=== PATIENT | female | born 1980 | race Caucasian/White ===

== ENCOUNTER 2017-11-29 21:21 | Inpatient (IN) | payer OTHER ==
[~2017-11-29] VITALS: Ht 166.4 cm; Wt 63.5 kg
[2017-11-30] MEDS ORDERED: ceFAZolin(*) 2GM/D5W 50ML 50 ML IVPB PRN (19:38)
[2017-11-30] MEDS ORDERED: OXYTOCIN 30 UNIT/D5LR 500 ML 500 ML IV PRN ×2 (19:38→21:22)
[2017-11-30] MEDS ORDERED: FAMOTIDINE(*) 20MG/50ML PREMIX 50 ML IVPB PRN (19:38)
[2017-11-30] MEDS ORDERED: MISOPROSTOL 25 MCG CAP PV PRN (19:40)
[2017-11-30] MEDS ORDERED: TERBUTALINE SULF 1 MG/ML VIAL SUBQ PRN (19:40)
[2017-11-30] MEDS ORDERED: METOCLOPRAMIDE 10 MG/2 ML SDV IVP PRN (19:40)
[2017-11-30] MEDS ORDERED: ONDANSETRON 4 MG/2 ML VIAL IVP PRN (19:40)
[2017-11-30] MEDS ORDERED: ACETAMINOPHEN 500 MG TAB PO PRN (19:40)
[2017-11-30] MEDS ORDERED: cefOXitin/DEX(*) 2GM/50ML PREM 50 ML IVPB PRN (19:40)
[2017-11-30] MEDS ORDERED: DINOPROSTONE 10 MG INSERT PV ONE (19:40)
[2017-11-30] MEDS ORDERED: LIDOCAINE/SOD BICARB 8.4% SYR SC PRN ×2 (19:40)
[2017-11-30] MEDS ORDERED: fentaNYL CITR 100 MCG/2 ML AMP IVP PRN ×2 (19:40)
[2017-11-30] MEDS ORDERED: DLR(*) 1000 ML BAG 1,000 ML IV PRN (19:40)
[2017-11-30] MEDS ORDERED: LIDOCAINE 1% LOCAL 300 MG/30ML INJ PRN (19:40)
[2017-11-30] MEDS ORDERED: ZOLPIDEM TARTRATE 5 MG TAB PO PRN (19:40)
[2017-11-30 20:10] VITALS: BP 123/72; Ht 166.4 cm; Wt 63.5 kg
[2017-11-30 20:30] LABS: PLATELET COUNT, AUTOMATED 221 K/uL (150-450)
[2017-11-30] MEDS ORDERED: PREN-127 PO (21:16)
--- NOTE | 2017-11-30 21:49 | History & Physical ---
History of Present Illness Age of Patient: 37 : 1 Para or TPAL: 0 EDC per LMP: Dec 06, 2017 Estimated Gestational Age: 39 Chief Complaint IUGR History of Present Illness Presents at 39 weeks for IOL for asymmetric IUGR. Overall growth has been around 15%ile while AC <5%. Good fluid, dopplers and interval growth. Recommending delivery at 39 weeks due to IUGR. otherwise complicated by AMA. Past Medical, Surgical, Family and Obstetric Histories reviewed. Please see ACOG chart. Med Rec Home Meds Reported Medications Vits W-Ca,Fe,Fa(<1MG) ( VITAMINS) 1 Each Tablet, 1 EACH PO DAILY, TAB 11/30/17 Review of Systems All Systems Reviewed/Normal: Yes, Except as Noted Other All other systems reported Negative. Exam General Exam Vital Signs Vital Signs Date Time Temp Pulse Resp B/P (MAP) Pulse Ox O2 Delivery O2 Flow Rate FiO2 11/30/17 20:10 99.3 73 18 123/72 (89) 97 Room Air General Apperance: Alert/Awake/No Acute Distress Neuro: No Gross deficits Cardiovascular: Regular Rate and Rhythm Respiratory: No Respiratory Distress Abdomen: Soft, Non-Tender, Non-Distended, Gravid - Non-Tender Psychological: Alert & Oriented X3, Appropriate Mood & Affect Cervical Dialation: 3 Cervical Effacement (%): 50 Cervical Consistency: Moderate Station: -2 Presentation: Vertex (confirmed by u/s at bedside) Uterine Contractions(Q min): 3 Uterine Contraction Strength: Moderate Fetus Heart Tone Variabilty: Moderate FHT Accelerations: 15X15 FHT Category: I Medical Decision Making Data Points Result Diagram: 11/30/172011 VTE Prophylasis: Adult Deep Vein Thrombosis/Pulmonary: No Pharmacological Contraindicati: Pt at Low Risk for VTE Mechanical Contraindications: Pt at Low Risk for VTE 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 Recommending re- check cervix tonight and if no active progress with augment with pitocin through the night. AISHWARYA SIMON MD Nov 30, 2017 21:49
[2017-12-01] MEDS: LR(*) 1000 ML BAG 1,000 ML IV PRN ×2 (02:11→14:23)
--- NOTE | 2017-12-01 08:39 | Labor Progress Note ---
Labor Subjective Progress Notes Subjective No having much pain with contractions. No bleeding or spotting. Good movement. Feeling Movement?: Yes Vaginal Discharge/Fluid: No Bloody Show, No Clear Fluid, No Bloody Fluid, No Green Tinged Fluid, No Dark Green Fluid, No Mucous, No Small Amount, No Moderate Amount, No Large Amount, No Other Labor Pain: Mild Neurological: No Headache, No Other Eyes: No Visual Disturbances Labor Objective Vital Signs Vital Signs Date Time Temp Pulse Resp B/P (MAP) Pulse Ox O2 Delivery O2 Flow Rate FiO2 11/30/17 20:10 99.3 73 18 123/72 (89) 97 Room Air Vaginal Discharge/Fluid?: Clear Fluid (with amniotomy) Cervical Dialation: 3 Cervical Effacement (%): 50 Cervical Consistency: Moderate Cervical Position: Mid Station: -1 Presentation: Vertex Fetus Estimated Weight(grams): 2600 Heart Tones: 135 Heart Tone Variabilty: Moderate FHT Accelerations: 15X15 FHT Decelerations: None FHT Category: I Other Result Diagram: 11/30/172011 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 S/P amniotomy with clear amniotic fluid. Continue to get adequate labor pattern with oxytocin. RACHEL BAXTER DO Dec 01, 2017 08:39
[2017-12-01] MEDS ORDERED: BUPIVACAINE 0.25% MPF INJ EPI PRN (12:55)
[2017-12-01] MEDS ORDERED: fentaNYL CITR 100 MCG/2 ML AMP IT PRN (12:55)
[2017-12-01] MEDS ORDERED: LIDO/EPI 2% MPF 1:200,000 20ML EPI PRN (12:55)
[2017-12-01] MEDS ORDERED: ePHEDrine 25 MG/5 ML DISP.SYR IVP PRN (12:55)
[2017-12-01] MEDS ORDERED: FENTANYL/ROPIVACAINE 100 ML BAG EPI PRN (12:55)
[2017-12-01] MEDS ORDERED: BUPIVACAINE 0.5% INJ 30ML VIAL EPI PRN (12:55)
[2017-12-01] MEDS ORDERED: LIDOCAINE/PF 2% 200MG/10ML AMP 200 MG/10 ML AMPUL EPI PRN (12:55)
[2017-12-01] MEDS ORDERED: EPIDURAL KEYS XX PRN (12:55)
--- NOTE | 2017-12-01 16:15 | Anesthesia OB Pre-Anes Eval ---
History of Present Illness Anesthesia Start Date: Dec 01, 2017 Anesthesia Start Time: 15:44 OB Anesthesia Diagnosis: induction - medical EDC: Dec 06, 2017 : 1 Para: 0 Vital Signs: Vital Signs 11/30/17 20:10 Temp 99.3 Pulse 73 Resp 18 B/P (MAP) 123/72 (89) Pulse Ox 97 O2 Delivery Room Air Pain Ratin Result Diagram: 11/30/172011 Height (Inches): 65.50 Weight (Pounds): 140 BMI Calculated: 22.94 Past Medical History Medical History: no pertinent history Surgical History: no surgical history Hx Anesthesia Reactions: No Hx Family Anesthesia Reaction: No Current Medications: pitocin Home Meds Reported Medications Vits W-Ca,Fe,Fa(<1MG) ( VITAMINS) 1 Each Tablet, 1 EACH PO DAILY, TAB 11/30/17 Allergies: Coded Allergies: No Known Drug Allergies (Unverified , 12/01/17) Anesthesia OB ROS Neurological: No migraines/headaches, No seizures, No neuropathy, No other ENT: Denies Tooth caps, Denies Loose teeth, Denies Chipped teeth, Denies Dentures, Denies Bridges, Denies Retainers, Denies Veneers, Denies Implants, Denies Tongue ring, Denies Other Pulmonary: No asthma, No smoker (pks/day/yrs), No other Airway Class: ll Cardiovascular ROS: No edema, No arrhythmia, No other GI ROS: clear liquids, ice chips Last Solids Date: Nov 30, 2017 Last Solids Time: 18:30 ROS: No Herpes, No STD(s), No Liver Disease, No Renal Disease, No Other Endocrine ROS: No diabetes, No gestational diabetes, No thyroid disorder, No other Musculoskeletal ROS: No low back pain, No low back injury, No scoliosis, No other ASA Classification: 2 Assessment and Plan Anesthesia Plan: TEN JEWELL CRNA Dec 01, 2017 16:15
--- NOTE | 2017-12-01 16:17 | Procedure Note ---
Anesthetic Placement Note Anesthesia Plan: CSE Permit for Anesthesia Signed: Yes Anesthesia Technique: Patient Sitting Anesthesia Prep: Chlorhexidine Interspace: L 3-4 Local Anesthetic: 1% Lidocaine Amount Local - cc's: 3 Anesthesia Needle: 17g Touhy/Schliff Anesthesia Attempts: 1 Loss of Resistance: Normal Saline Depth of MASSIMO (cm): 4 Epidural Needle Placement: No CSF, No Blood, No Parasthesia Intrathecal Needle: 27 Gauge Pencan Cerebral Spinal Fluid: Yes, Clear Catheter Insertion (cm): 9 Catheter Type: Singh - Spring Wound Epidural Dressing: Tegaderm, Tape Anesthesia Tray: Lot Number ([id number]), Expiration Date (06/29), Reference Number ([id number]) Anesthesia Medications: Intrathecal Dose: mcg Fentanyl (10), mg Marcaine MPF (2.5), Time (1553) Epidural Test Dose: 1.5 Lido/Epi (1:200,000), Dose - mL (3), Time (1556), Negative Epidural Infusion: 0.2% Ropivicaine, With Fentanyl 2mcg/ml, Start Time: (1606) Epidural Pump Setting: Bolus Dose - mL (6), Lockout - Minutes (20), Maintenance Rate - mL/hr (6), Maximum per Hour - mL (24) Complications: None TEN JOSHI CRNA Dec 01, 2017 16:17
--- NOTE | 2017-12-01 18:25 | Labor Progress Note ---
Labor Subjective Progress Notes Subjective Feeling comfortable s/p epidural. Denies any pain. Starting to feel pressure. Feeling Movement?: Yes Vaginal Discharge/Fluid: Clear Fluid Labor Pain: Mild Neurological: No Headache, No Other Eyes: No Visual Disturbances Labor Objective Vital Signs Vital Signs Date Time Temp Pulse Resp B/P (MAP) Pulse Ox O2 Delivery O2 Flow Rate FiO2 11/30/17 20:10 99.3 73 18 123/72 (89) 97 Room Air Cervical Dialation: 9 Cervical Effacement (%): 100 Cervical Consistency: Soft Cervical Position: Anterior Station: -1 Presentation: Vertex Uterine Contractions(Q min): 2 Fetus Heart Tones: 135 Heart Tone Variabilty: Moderate FHT Accelerations: 15X15 FHT Decelerations: Early FHT Category: I Other Result Diagram: 11/30/172011 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 Will continue oxytocin infusion. Expect once complete. RACHEL BAXTER DO Dec 01, 2017 18:25
[2017-12-01] MEDS ORDERED: ACETAMINOPHEN 325 MG TAB PO PRN (20:35)
[2017-12-01] MEDS ORDERED: APAP/HYDROCODONE 325/5 TAB PO PRN (20:35)
[2017-12-01] MEDS ORDERED: MAGNESIUM HYDROXIDE* 30ML UDCP PO PRN (20:35)
[2017-12-01] MEDS ORDERED: GLYCERIN/WITCH HAZEL LEAF 1 PK TP PRN (20:35)
[2017-12-01] MEDS ORDERED: LANOLIN OINT 7 GM TUBE TP PRN (20:35)
[2017-12-01] MEDS ORDERED: HYDROCORTISONE 2.5% CR 30GM TB PR PRN (20:35)
[2017-12-01] MEDS ORDERED: BENZOCAINE 20% 60 ML BTL TP PRN (20:35)
--- NOTE | 2017-12-01 20:35 | OB Delivery Note ---
Delivery Note Vaginal Delivery Type: Spont. 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
[2017-12-01 21:00] VITALS: BP 111/57
[2017-12-01 22:00] VITALS: BP 104/56
--- NOTE | 2017-12-01 22:30 | DELIVERY NOTE ---
DELIVERY DATE: December 01, 2017 SURGEON: Chano Pineda DO ANESTHESIA: Epidural. PREOPERATIVE DIAGNOSES 1. A 37-year-old 1, para zero, at 39-2/7 weeks' gestation. 2. growth restriction. 3. Advanced maternal age. POSTOPERATIVE DIAGNOSES 1. A 37-year-old 1, para zero, at 39-2/7 weeks' gestation. 2. growth restriction. 3. Advanced maternal age. 4. Delivered. PROCEDURE Spontaneous vaginal delivery with repair of second-degree midline laceration and bilateral labial lacerations. FINDINGS Live-born female at 1950 on December 01, 2016, with Apgars of 9 and 9, weighing 2582 g or 5 pounds 11 ounces, three-vessel cord, intact placenta over a second-degree midline laceration and bilateral labial lacerations. ESTIMATED BLOOD LOSS 500 mL PATHOLOGY None. COMPLICATIONS None known. CONDITION Stable times two. Mother and infant to remain in LDRP. COUNTS Correct times two for all needles, laps, sponges, and instruments. LABOR SUMMARY The patient is a 37-year-old 1, para zero, at 39-2/7 weeks' gestation, who presented to Labor and Delivery for induction of labor secondary to growth restriction. She was 3 cm on initial exam and started on oxytocin. With oxytocin running, the patient made minimal cervical change. She then underwent artificial rupture of amniotic membranes with clear amniotic fluid and continued on oxytocin. The patient made slow, but spontaneous change with category 1 strip throughout her pattern. The patient was eventually noted to be complete, noting increased pressure, and had the desire to push. She was noted to be complete, complete, and +2 station. After coaching by the labor staff, the patient was prepped and started pushing. The patient pushed for approximately one hour when the delivery was called and assembled. DELIVERY SUMMARY The patient was placed in the dorsal lithotomy position, prepped and draped in the usual sterile manner. Upon maternal pushing, the head delivered in a controlled manner, followed by the anterior shoulder with gentle downward motion and the posterior shoulder with gentle upward motion. The remainder of the 's body delivered spontaneously. Mouth and nose were bulb suctioned. The cord was clamped times two and cut by the infant's father after approximately two and a half minutes after delivery. The infant was then placed right on the maternal chest where she continued to have vigorous cleaning and drying. Cord blood gas was obtained. The placenta delivered spontaneously with gentle cord traction. Oxytocin was infused to help with uterine tone. Uterus was massaged and deemed firm. Upon inspection of the perineum, vagina, cervix, and labia, it was noted there were bilateral labial lacerations and a second-degree midline laceration. The bilateral labial lacerations were repaired with 4-0 Vicryl in a running manner. The second-degree midline laceration was repaired with 3-0 Vicryl in a running manner. With lacerations repaired, the perineum was inspected and noted to be hemostatic. At this point, the patient was cleaned, the labor bed was reassembled, and the mother and were allowed to continue to hager. ENRIQUETA
[2017-12-01] MEDS: IBUPROFEN 800 MG TAB PO SCH (22:38)
[2017-12-01] MEDS: DOCUSATE CALCIUM 240 MG CAP PO SCH (22:39)
[2017-12-02 00:55] VITALS: BP 122/68
[2017-12-02 05:00] VITALS: BP 115/71
[2017-12-02] MEDS: IBUPROFEN 800 MG TAB PO SCH ×3 (06:10→21:43)
[2017-12-02 07:15] VITALS: BP 115/60
--- NOTE | 2017-12-02 08:38 | OB/GYN Progress Note ---
OB Subjective Progress Notes Subjective Doing good this morning. Tolerating regular diet. Ambulatory. with minimal difficulty. Voiding with out any difficulty. Lochia appropriate. GI: NEG Nausea, NEG Vomiting, NEG Flatus, NEG Bowel Movement : Voiding Well, Vaginal Bleeding, Scant Pain: Mild Neurological: No Headache, No Other Eyes: No Visual Disturbances OB Objective Physical Exam Vital Signs Date Time Temp Pulse Resp B/P (MAP) Pulse Ox O2 Delivery O2 Flow Rate FiO2 12/02/17 07:15 97.7 65 15 115/60 (78) 94 Room Air General Appearance: Alert/Awake/No Acute Distress Neurological: No Gross deficits Eyes: Normal Extraocular Movement & Vison ENT: Normal Neck: No Masses Cardiovascular: Normal Rhythm & Peripheral Pulses Respiratory: No Respiratory Distress, Clear to Auscultation Abdomen: Soft, Non-Tender, Non-Distended, Fundus Firm Integumentary: Skin Intact without Lesions or Rash Psychological: Alert & Oriented X3, Appropriate Mood & Affect Result Diagram: 12/02/17 0631 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 Pt to decide if she wants to be discharged tonight or tomorrow. Follow up in 6 weeks. RACHEL BAXTER DO Dec 02, 2017 08:38
[2017-12-02] MEDS ORDERED: IBUP800T37 PO (08:39)
[2017-12-02] MEDS ORDERED: LOR5/325 PO (08:39)
--- NOTE | 2017-12-02 08:42 | OB/GYN Discharge Summary ---
Discharge Summary Reason for Hosp/Final Diag: (1) Asymmetric IUGR affecting , antepartum Status: Resolved Hospital Course & Plan: Pt presented for IOL secondary to growth restriction. Underwent Oxytocin induction and progressed to complete and plus 5. See delivery note for details of procedure. Pt remained in the hospital for 2 days post . Pt to follow up in 6 weeks. Lates Vital Signs Vital Signs Date Time Temp Pulse Resp B/P (MAP) Pulse Ox O2 Delivery O2 Flow Rate FiO2 12/02/17 07:15 97.7 65 15 115/60 (78) 94 Room Air Weight (Pounds): 140 Result Diagram: 12/02/17630 Condition: Improved Discharge: Home Home Meds Active Scripts Ibuprofen (IBUPROFEN) 800 Mg Tablet, 800 MG PO 0600,1400,2200, #30 TAB 0 Refills Prov:RACHEL BAXTER DO 12/02/17 Hydrocodone Bit/Acetaminophen (HYDROCODON-ACETAMINOPHEN 5-325) 1 Each Tablet, 1- 2 EACH PO Q4H Y for PAIN, #30 TAB 0 Refills Prov:RACHEL BAXTER DO 12/02/17 Reported Medications Vits W-Ca,Fe,Fa(<1MG) ( VITAMINS) 1 Each Tablet, 1 EACH PO DAILY, TAB 11/30/17 [facility] [phone], Dr. Baxter [phone] Follow up in: 6 wks PP or PO Discharge Diet: As Tolerates, Resume Prior Admit Diet, Increase Fluid Intake Discharge Activity: Pelvic Rest RACHEL BAXTER DO Dec 02, 2017 08:42
[2017-12-02] MEDS: DOCUSATE CALCIUM 240 MG CAP PO SCH ×2 (08:50→21:43)
[2017-12-02] MEDS ORDERED: MEASLES,MUMP,RUBELLA VAC 0.5ML SUBQ ONE (09:00)
[2017-12-02] MEDS ORDERED: DIPHTH/TETANUS/ACEL. PERTUSSIS IM ONLY ONE (09:00)
[2017-12-02] MEDS ORDERED: INFLUENZA VIRUS VAC 0.5 ML SYR IM ONLY ONE (09:00)
[2017-12-02 11:00] VITALS: BP 113/68
--- NOTE | 2017-12-02 15:03 | Anesthesia Post Eval Note ---
Anesthesia Post Eval Note Stable, afebrile Pt able to participate in Eval: Yes Cardiovascular Status: Satisfactory Respiratory Status: Satisfactory Pain Managment: Satisfactory PO Nausea/Vomiting: Satisfactory Temperature Management: Satisfactory Mental Status: Satisfactory, Alert, Oriented X3 Post-Op Hydration Status: Satisfactory, Tolerating PO Well, Voiding w/o Difficulty Anesthesia Type: CSE Anesthesia Tolerance: Tolerated well, effective labor analgesia. Ambulatory without S/S PDPH. MARYLOU CORONA CRNA Dec 02, 2017 15:03
[2017-12-02 15:10] VITALS: BP 112/70
[2017-12-02 20:00] VITALS: BP 116/77
[2017-12-03 00:03] VITALS: BP 126/61
[2017-12-03] MEDS: IBUPROFEN 800 MG TAB PO SCH (06:21)
[2017-12-03 06:30] VITALS: BP 118/81
[2017-12-03 07:30] VITALS: BP 109/74
[2017-12-03] MEDS: DOCUSATE CALCIUM 240 MG CAP PO SCH (08:38)
--- NOTE | 2017-12-03 09:55 | OB/GYN Progress Note ---
OB Subjective Progress Notes Subjective Patient reports feels well overall. going well. Bleeding minimal. GI: POS Flatus, NEG Nausea, NEG Vomiting, NEG Bowel Movement : Voiding Well, Vaginal Bleeding, Scant Pain: Mild, Tolerating PO Pain Meds Neurological: No Headache, No Other Eyes: No Visual Disturbances OB Objective Physical Exam Vital Signs Date Time Temp Pulse Resp B/P (MAP) Pulse Ox O2 Delivery O2 Flow Rate FiO2 12/03/17 06:30 68 18 118/81 (93) 12/03/17 00:03 98.2 12/02/17 15:10 94 Room Air General Appearance: Alert/Awake/No Acute Distress Neurological: No Gross deficits Eyes: Normal Extraocular Movement & Vison ENT: Normal Neck: No Masses Cardiovascular: Normal Rhythm & Peripheral Pulses Respiratory: No Respiratory Distress, Clear to Auscultation Abdomen: Soft, Non-Tender, Non-Distended, Fundus Firm, Non-Tender Integumentary: Skin Intact without Lesions or Rash Psychological: Alert & Oriented X3, Appropriate Mood & Affect Result Diagram: 12/02/17 0631 Assessment and Plan Problems: (1) Asymmetric IUGR affecting , antepartum Status: Resolved (2) care and examination of lactating mother Status: Acute Assessment & Plan: 37yo PPD 2 s/p , doing well. . Meeting all discharge criteria. Reviewed routine post- teaching. Plan for discharge home today with 6 week post- follow-up. DOROTHY MONTOYA MD Dec 03, 2017 09:55
[2017-12-03 11:15] VITALS: BP 104/67
== END 2017-12-03 12:40 | disposition home or self-care (01) | DRG 775 ==
LOC: OB 11-30 19:37
PROVIDERS: ADMIT Obstetrics & Gynecology; ATTEND Obstetrics & Gynecology
PROC: 3E033VJ Introduction of Other Hormone into Peripheral Vein, Percutaneous Approach (ICD-10-PCS; 2017-11-30)
PROC: 10E0XZZ Delivery of Products of Conception, External Approach (ICD-10-PCS; principal; 2017-12-01)
PROC: 0KQM0ZZ Repair Perineum Muscle, Open Approach (ICD-10-PCS; 2017-12-01)
PROC: 10907ZC Drainage of Amniotic Fluid, Therapeutic from Products of Conception, Via Natural or Artificial Opening (ICD-10-PCS; 2017-12-01)
DX: O36.5930 Maternal care for other known or suspected poor fetal growth, third trimester, not applicable or unspecified (principal); O70.1 Second degree perineal laceration during delivery; Z37.0 Single live birth; Z3A.39 39 weeks gestation of pregnancy
CPT/HCPCS: 36415; 85025; 85027; 86850; 86900; 86901; J2590; J3010; J7120; S0020